=== PATIENT | female | born 1950 | race Caucasian/White ===

== ENCOUNTER 2019-09-17 12:32 | Emergency (ER) | payer OTHER, MEDICARE ==
[2019-09-17] MEDS ORDERED: COZAAR25 M1 (12:42)
[2019-09-17] MEDS ORDERED: LASIX20 M1 (12:42)
[2019-09-17] MEDS ORDERED: CYCLOBENZAPRINE10 M1 PO (14:19)
[2019-09-17 14:29] VITALS: BP 152/73
== END 2019-09-17 14:28 | disposition home or self-care (01) ==
LOC: ED 12:32
DX: S13.4XXA Sprain of ligaments of cervical spine, initial encounter (principal); I25.10 Atherosclerotic heart disease of native coronary artery without angina pectoris; Z23 Encounter for immunization; V49.9XXA Car occupant (driver) (passenger) injured in unspecified traffic accident, initial encounter; Y92.410 Unspecified street and highway as the place of occurrence of the external cause
CPT/HCPCS: 90715; L0172

== ENCOUNTER → 2020-10-24 | Outpatient (CLI) | payer MEDICARE ==
[~2020-10-24] MED LIST: COZAAR25 M1; CYCLOBENZAPRINE10 M1 PO; LASIX20 M1
== END ==
LOC: RAD 08:25
DX: M79.89 Other specified soft tissue disorders (principal)